=== PATIENT | female | born 1980 | race Caucasian/White ===

== ENCOUNTER 2017-06-13 21:27 | Emergency (ER) | payer OTHER, MEDICAID ==
[~2017-06-13] VITALS: Ht 160 cm; Wt 143.3 kg
[~2017-06-13 21:27] MED LIST: ALBUTEROL2.5 MG/3 M INH; AMBIEN 10 MG TA10 MG PO; ANASPAZ0.125 MG SL; BENTYL 10 MG CA10 M1 PO; BENTYL20 MG PO; BUSPIRONE HCL10 MG PO; DUONEB 2.5-0.5 M3 ML INH; FLAGYL500 MG PO; FLEXERIL PO; GABAPENTIN 100100 MG PO; HYDROCHLOROTHIA25 M2 PO; HYDROCODONE-AP1 EAC6 PO; HYDROCODONE-APA1 TA1 PO; HYDROXYZINE PAM50 MG PO; IBUPROFEN 800800 M1 PO; IBUPROFEN 800800 MG PO; LEXAPRO 10 MG T10 M1 PO; LEXAPRO 10 MG T10 M2 PO; MACROBID 100 M100 M1 PO; MEDROL DOSPAK21 TA1 PO; MEDROLDOSEPACK PO; MIRALAX17 GM PO; NAPROSYN500 MG PO; NEBULIZER MISCELL; NORCO 5-325 TA1 EACH PO; ONDANSETRON HCL4 M2 PO; PEPCID20 MG PO; PREDNISONE 20 M20 MG PO; PREDNISONE50 MG PO; PRINIVIL20 MG; PROAIR HFA8.5 GM PO; PROMETHAZINE/C118 ML PO; PROTONIX40 M1; PROTONIX40 M1 PO; REGLAN 10 MG TA10 MG PO; ROBAXIN 750 MG750 M1 PO; TESSALON PERLE100 MG PO; TRAMADOL 50 MG50 MG PO; TRIAMCINOLONE A15 G1 TP; VENTOLIN HFA 1818 GM INH; VISTARIL 25 MG25 M1 PO; ZOFRAN4 MG PO; ZPAK PO
[2017-06-13] MEDS ORDERED: JANUVIA100 MG PO (21:32)
[2017-06-13] MEDS ORDERED: PRAVASTATIN SOD10 MG PO (21:32)
[2017-06-13 21:58] LABS: ABSOLUTE EOSINOPHILS 0.2 thou/uL (0.0-0.7); ABSOLUTE LYMPHOCYTES 1.4 thou/uL (0.8-5.3); ABSOLUTE MONOCYTES 0.5 thou/uL (0.0-1.2); ABSOLUTE NEUTROPHILS 7.2 thou/uL (1.6-8.1); BASOPHILS 0.4 %; HEMATOCRIT 34.1 % (37.0-47.0); LYMPHOCYTES 15.4 %; MCH 27.5 pg (26.0-34.0); MCHC 32.4 g/dL (28.0-37.0); MCV 85.1 fL (80.0-100.0); MONOCYTES 5.3 %; MPV 7.8 fl. (7.2-11.1); NUCLEATED RBCS 0 /100WBC; PLATELET COUNT* 288 thou/uL (150-400); POLYS 76.9 %; RBC 4.01 mil/uL (4.20-5.00); RDW-CV 16.9 % (10.5-14.5); WBC 9.3 thou/uL (4.0-11.0)
[2017-06-13 22:05] LABS: ANION GAP 11 mmol/L (7-16); BUN 7 mg/dL (7-18); CALCIUM 8.3 mg/dL (8.5-10.1); CHLORIDE 103 mmol/L (98-107); CO2 26 mmol/L (21-32); CREATININE 0.7 mg/dL (0.6-1.3); GLUCOSE 122 mg/dL (70-99); POTASSIUM 4.1 mmol/L (3.5-5.1); SODIUM 140 mmol/L (136-145)
[2017-06-13 22:18] LABS: APTT 26.8 Seconds (25.0-31.3); PROTIME 10.1 Seconds (9.20-11.50)
[2017-06-13 22:30] LABS: ALBUMIN 2.9 g/dL (3.4-5.0); ALKALINE PHOSPHATASE 94 U/L (46-116); CK-MB MASS < 0.5 ng/mL (<0.5-3.6); LIPASE 226 U/L (73-393); MAGNESIUM 1.7 mg/dL (1.8-2.4); NT-PRO BRAIN NAT PEPTIDE 347 pg/mL (<300); SGOT 21 U/L (15-37); SGPT 13 U/L (30-65); TOTAL BILIRUBIN 0.3 mg/dL (<0.1-1.0); TOTAL PROTEIN 7.3 g/dL (6.4-8.2); TROPONIN-I LEVEL <0.06 ng/mL (<0.06)
[2017-06-14] MEDS ORDERED: NORCO 5-325 TA1 EACH PO (00:42)
[2017-06-14] MEDS ORDERED: KEFLEX500 M1 PO (00:42)
[2017-06-14 01:03] VITALS: BP 138/90
--- NOTE | 2017-06-14 11:28 | EKG ---
[place] [address] ELECTROCARDIOGRAM REPORT Name: AILYN MORALES Room: 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
== END 2017-06-14 01:03 | disposition home or self-care (01) ==
LOC: M.ERS 21:27
PROVIDERS: Family Medicine
DX: R07.9 Chest pain, unspecified (principal); L03.116 Cellulitis of left lower limb; I10 Essential (primary) hypertension; K21.9 Gastro-esophageal reflux disease without esophagitis; J44.9 Chronic obstructive pulmonary disease, unspecified; F41.9 Anxiety disorder, unspecified; F32.9 Major depressive disorder, single episode, unspecified; F17.210 Nicotine dependence, cigarettes, uncomplicated; Z90.49 Acquired absence of other specified parts of digestive tract; Z98.890 Other specified postprocedural states; Z88.1 Allergy status to other antibiotic agents; Z88.5 Allergy status to narcotic agent

== ENCOUNTER 2017-06-21 16:48 | Emergency (ER) | payer OTHER, MEDICAID ==
[~2017-06-21] VITALS: Ht 160 cm; Wt 136.1 kg
[~2017-06-21 16:48] MED LIST changes: +JANUVIA100 MG PO; +KEFLEX500 M1 PO; +PRAVASTATIN SOD10 MG PO
[2017-06-21 17:37] LABS: INFLUENZA A ANTIGEN None Detected (None Detect); INFLUENZA B ANTIGEN None Detected (None Detect)
[2017-06-21 17:37] LABS: ABSOLUTE EOSINOPHILS 0.1 thou/uL (0.0-0.7); ABSOLUTE LYMPHOCYTES 0.8 thou/uL (0.8-5.3); ABSOLUTE MONOCYTES 0.5 thou/uL (0.0-1.2); ABSOLUTE NEUTROPHILS 6.5 thou/uL (1.6-8.1); BASOPHILS 0.3 %; EOSINOPHILS 1.1 %; HEMATOCRIT 29.4 % (37.0-47.0); HEMOGLOBIN 9.7 gm/dL (12.0-15.0); LYMPHOCYTES 10.3 %; MCH 27.3 pg (26.0-34.0); MCHC 32.9 g/dL (28.0-37.0); MONOCYTES 6.4 %; MPV 7.3 fl. (7.2-11.1); NUCLEATED RBCS 0 /100WBC; PLATELET COUNT* 307 thou/uL (150-400); POLYS 81.9 %; RBC 3.54 mil/uL (4.20-5.00)
[2017-06-21 17:47] LABS: CALCIUM 8.8 mg/dL (8.5-10.1); CREATININE 0.7 mg/dL (0.6-1.3); POTASSIUM 3.9 mmol/L (3.5-5.1)
[2017-06-21 17:51] LABS: ALBUMIN 2.4 g/dL (3.4-5.0); TOTAL BILIRUBIN 0.2 mg/dL (<0.1-1.0); TOTAL PROTEIN 7.2 g/dL (6.4-8.2)
[2017-06-21] MEDS ORDERED: TESSALON PERLE100 MG PO (18:39)
[2017-06-21] MEDS ORDERED: CEFUROXIME500 MG PO (18:39)
[2017-06-21] MEDS ORDERED: PROAIR HFA8.5 GM INH (19:31)
[2017-06-21 19:52] VITALS: BP 177/102
--- NOTE | 2017-06-22 20:13 | EKG ---
[place] [address] ELECTROCARDIOGRAM REPORT Name: AILYN MORALES Room: [facility]#: [id number] Admission: 06/21/17 Attend Phys: Discharge: 06/21/17 Date of : 76 Report #: [id number] THIS REPORT FOR: //name// [facility] ED Test Date: 2017-06-21 Test Time: 17:31:35 Pat Name: AILYN MORALES Department: Room: Gender: F Hand Ironer: Aldo WOOD : 1980 Requested By: Randee Harmon Order Number: [id number] MD: Misael Chisholm Measurements Intervals [place] Rate: 105 P: 42 W[place]: 155 QRS: 37 QRSD: 93 T: 44 QT: 343 QTc: 454 Interpretive Statements Sinus tachycardia Compared to ECG 06/13/2017 21:35:46 No significant changes Electronically Signed On 06-22-2017 20:12:53 TIBCO DEVELOPER by Misael Chisholm [email or web address] <ELECTRONICALLY SIGNED> By: Misael Chisholm MD, [facility] 06/22/172011 1731 1731 Misael Chisholm MD, FAC /EPI
== END 2017-06-21 19:53 | disposition home or self-care (01) ==
LOC: M.ERS 16:48
PROVIDERS: Nurse Practitioner Family
DX: J44.1 Chronic obstructive pulmonary disease with (acute) exacerbation (principal); I10 Essential (primary) hypertension; K21.9 Gastro-esophageal reflux disease without esophagitis; F41.9 Anxiety disorder, unspecified; F32.9 Major depressive disorder, single episode, unspecified; F17.210 Nicotine dependence, cigarettes, uncomplicated; Z88.8 Allergy status to other drugs, medicaments and biological substances; Z90.49 Acquired absence of other specified parts of digestive tract; Z88.0 Allergy status to penicillin

== ENCOUNTER 2017-06-24 08:00 | Inpatient (IN) | payer OTHER, MEDICAID ==
[~2017-06-24] VITALS: Ht 160 cm; Wt 141.6 kg
[~2017-06-24 08:00] MED LIST changes: +CEFUROXIME500 MG PO; +PROAIR HFA8.5 GM INH
[2017-06-24 08:17] VITALS: BP 197/119
[2017-06-24 11:00] LABS: HEMATOCRIT 33.3 % (37.0-47.0); HEMOGLOBIN 10.9 gm/dL (12.0-15.0); MCH 26.9 pg (26.0-34.0); MCHC 32.8 g/dL (28.0-37.0); MCV 82.1 fL (80.0-100.0); NUCLEATED RBCS 0 /100WBC; PLATELET COUNT* 351 thou/uL (150-400); RBC 4.06 mil/uL (4.20-5.00); RDW-CV 15.6 % (10.5-14.5); WBC 9.8 thou/uL (4.0-11.0)
[2017-06-24 11:13] LABS: CALCIUM 8.8 mg/dL (8.5-10.1); CREATININE 0.6 mg/dL (0.6-1.3); POTASSIUM 3.1 mmol/L (3.5-5.1)
[2017-06-24 11:17] LABS: ALBUMIN 2.6 g/dL (3.4-5.0); TOTAL BILIRUBIN 0.3 mg/dL (<0.1-1.0); TOTAL PROTEIN 7.7 g/dL (6.4-8.2)
[2017-06-24 11:34] LABS: ABSOLUTE EOSINOPHILS 0.1 thou/uL (0.0-0.7); ABSOLUTE LYMPHOCYTES 2.3 thou/uL (0.8-5.3); ABSOLUTE MONOCYTES 0.4 thou/uL (0.0-1.2); ABSOLUTE NEUTROPHILS 7.1 thou/uL (1.6-8.1); PLATELET ESTIMATE ADEQUATE
[2017-06-24 11:35] LABS: ANISOCYTOSIS Occasional; HYPOCHROMASIA Occasional
[2017-06-24 12:07] VITALS: BP 167/103
[2017-06-24 12:29] VITALS: BP 170/101
[2017-06-24 15:46] VITALS: BP 143/81
[2017-06-25 00:05] VITALS: BP 141/85
[2017-06-25 04:15] LABS: HEMATOCRIT 30.8 % (37.0-47.0); HEMOGLOBIN 10.1 gm/dL (12.0-15.0); MCHC 32.7 g/dL (28.0-37.0); MCV 82.7 fL (80.0-100.0); PREALBUMIN 13.4 mg/dL (18.0-35.7); RBC 3.73 mil/uL (4.20-5.00); RDW-CV 16.1 % (10.5-14.5); WBC 7.5 thou/uL (4.0-11.0)
[2017-06-25 04:24] LABS: ALBUMIN 2.4 g/dL (3.4-5.0); CALCIUM 8.3 mg/dL (8.5-10.1); CREATININE 0.7 mg/dL (0.6-1.3); MAGNESIUM 1.8 mg/dL (1.8-2.4); POTASSIUM 3.6 mmol/L (3.5-5.1); TOTAL BILIRUBIN 0.3 mg/dL (<0.1-1.0); TOTAL PROTEIN 7.1 g/dL (6.4-8.2)
[2017-06-25 05:28] VITALS: BP 141/85
[2017-06-25 07:55] VITALS: BP 160/102
[2017-06-25 10:54] VITALS: BP 152/92
--- NOTE | 2017-06-25 10:59 | EKG ---
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
[2017-06-25 12:06] LABS: GLYCOHEMOGLOBIN (HGB A1C) 5.5 % (4.8-5.6)
[2017-06-25 15:12] LABS: HBsAG-EMPLOYEE EXPOSURE Negative (Negative)
[2017-06-25 17:00] VITALS: BP 152/84
[2017-06-25 20:00] VITALS: BP 110/63
[2017-06-26 03:35] VITALS: BP 131/74
[2017-06-26 04:01] LABS: HEMOGLOBIN 9.5 gm/dL (12.0-15.0); MCH 27.3 pg (26.0-34.0); MCHC 32.7 g/dL (28.0-37.0); MCV 83.6 fL (80.0-100.0); RBC 3.47 mil/uL (4.20-5.00); RDW-CV 16.3 % (10.5-14.5); WBC 9.6 thou/uL (4.0-11.0)
[2017-06-26 04:16] LABS: CALCIUM 8.5 mg/dL (8.5-10.1); CREATININE 0.8 mg/dL (0.6-1.3); MAGNESIUM 1.9 mg/dL (1.8-2.4); POTASSIUM 4.2 mmol/L (3.5-5.1)
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
[2017-06-26 08:00] VITALS: BP 126/66
[2017-06-26 16:00] VITALS: BP 153/104
[2017-06-27 00:28] VITALS: BP 149/88
[2017-06-27 08:05] VITALS: BP 152/91
[2017-06-27 09:10] LABS: ABSOLUTE BASOPHILS 0.1 thou/uL (0.0-0.2); ABSOLUTE EOSINOPHILS 0.2 thou/uL (0.0-0.7); ABSOLUTE LYMPHOCYTES 1.4 thou/uL (0.8-5.3); ABSOLUTE MONOCYTES 0.4 thou/uL (0.0-1.2); ABSOLUTE NEUTROPHILS 5.9 thou/uL (1.6-8.1); BASOPHILS 1.3 %; EOSINOPHILS 2.1 %; HEMATOCRIT 28.5 % (37.0-47.0); HEMOGLOBIN 9.4 gm/dL (12.0-15.0); LYMPHOCYTES 17.6 %; MCH 27.2 pg (26.0-34.0); MCHC 33.1 g/dL (28.0-37.0); MCV 82.2 fL (80.0-100.0); MONOCYTES 5.3 %; MPV 7.4 fl. (7.2-11.1); NUCLEATED RBCS 0 /100WBC; PLATELET COUNT* 299 thou/uL (150-400); POLYS 73.7 %; RBC 3.47 mil/uL (4.20-5.00); RDW-CV 16.1 % (10.5-14.5); WBC 8.1 thou/uL (4.0-11.0)
[2017-06-27 09:25] LABS: ALBUMIN 2.3 g/dL (3.4-5.0); CALCIUM 8.8 mg/dL (8.5-10.1); CREATININE 1.1 mg/dL (0.6-1.3); POTASSIUM 4.1 mmol/L (3.5-5.1); TOTAL BILIRUBIN 0.3 mg/dL (<0.1-1.0); TOTAL PROTEIN 6.8 g/dL (6.4-8.2)
[2017-06-27 16:51] VITALS: BP 186/95
[2017-06-27 19:25] VITALS: BP 137/78
[2017-06-28 05:04] LABS: ABSOLUTE EOSINOPHILS 0.2 thou/uL (0.0-0.7); ABSOLUTE LYMPHOCYTES 1.1 thou/uL (0.8-5.3); ABSOLUTE MONOCYTES 0.5 thou/uL (0.0-1.2); ABSOLUTE NEUTROPHILS 6.9 thou/uL (1.6-8.1); BASOPHILS 0.4 %; EOSINOPHILS 1.9 %; HEMATOCRIT 30.1 % (37.0-47.0); HEMOGLOBIN 9.7 gm/dL (12.0-15.0); LYMPHOCYTES 12.6 %; MCH 26.7 pg (26.0-34.0); MCHC 32.2 g/dL (28.0-37.0); MONOCYTES 5.9 %; MPV 7.5 fl. (7.2-11.1); NUCLEATED RBCS 0 /100WBC; PLATELET COUNT* 293 thou/uL (150-400); POLYS 79.2 %; RBC 3.63 mil/uL (4.20-5.00); RDW-CV 16.2 % (10.5-14.5); WBC 8.8 thou/uL (4.0-11.0)
[2017-06-28 05:14] LABS: ALBUMIN 2.5 g/dL (3.4-5.0); CALCIUM 9.1 mg/dL (8.5-10.1); TOTAL BILIRUBIN 0.3 mg/dL (<0.1-1.0); TOTAL PROTEIN 7.2 g/dL (6.4-8.2)
[2017-06-28 09:00] VITALS: BP 177/96
[2017-06-28 16:26] VITALS: BP 142/79
[2017-06-28 23:44] VITALS: BP 142/90
[2017-06-29 05:48] LABS: ABSOLUTE BASOPHILS 0.1 thou/uL (0.0-0.2); ABSOLUTE EOSINOPHILS 0.1 thou/uL (0.0-0.7); ABSOLUTE LYMPHOCYTES 0.9 thou/uL (0.8-5.3); ABSOLUTE MONOCYTES 0.5 thou/uL (0.0-1.2); ABSOLUTE NEUTROPHILS 6.1 thou/uL (1.6-8.1); BASOPHILS 0.7 %; EOSINOPHILS 1.8 %; HEMOGLOBIN 9.8 gm/dL (12.0-15.0); LYMPHOCYTES 12.2 %; MCH 26.9 pg (26.0-34.0); MCHC 32.7 g/dL (28.0-37.0); MCV 82.1 fL (80.0-100.0); MONOCYTES 6.6 %; MPV 7.2 fl. (7.2-11.1); NUCLEATED RBCS 0 /100WBC; PLATELET COUNT* 306 thou/uL (150-400); POLYS 78.7 %; RBC 3.65 mil/uL (4.20-5.00); RDW-CV 16.4 % (10.5-14.5); WBC 7.8 thou/uL (4.0-11.0)
[2017-06-29 06:19] LABS: ALBUMIN 2.5 g/dL (3.4-5.0); CALCIUM 9.3 mg/dL (8.5-10.1); CREATININE 0.9 mg/dL (0.6-1.3); POTASSIUM 3.8 mmol/L (3.5-5.1); TOTAL BILIRUBIN 0.4 mg/dL (<0.1-1.0); TOTAL PROTEIN 7.3 g/dL (6.4-8.2)
[2017-06-29 12:44] VITALS: BP 182/93
[2017-06-29] MEDS ORDERED: NEURONTIN600 MG PO (15:25)
[2017-06-29] MEDS ORDERED: HYDROCODONE-AP1 EAC6 PO (15:25)
[2017-06-29] MEDS ORDERED: TOPROL XL50 MG PO (15:25)
[2017-06-29 16:47] VITALS: BP 182/93
[2017-06-29 19:28] VITALS: BP 182/93
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
== END 2017-06-29 19:05 | disposition home health service (06) | DRG 571 ==
LOC: M.ERS 08:00 → M.TBA-ER 10:38 → M.3W 12:12
PROVIDERS: Internal Medicine; Personal Emergency Response Attendant; ADMIT Family Medicine
PROC: 0JBP0ZZ Excision of Left Lower Leg Subcutaneous Tissue and Fascia, Open Approach (ICD-10-PCS; principal; 2017-06-24)
DX: L02.416 Cutaneous abscess of left lower limb (principal); L03.90 Cellulitis, unspecified; I16.0 Hypertensive urgency; E87.6 Hypokalemia; E11.65 Type 2 diabetes mellitus with hyperglycemia; I10 Essential (primary) hypertension; K21.9 Gastro-esophageal reflux disease without esophagitis; F17.210 Nicotine dependence, cigarettes, uncomplicated; J44.9 Chronic obstructive pulmonary disease, unspecified; F32.9 Major depressive disorder, single episode, unspecified; F41.9 Anxiety disorder, unspecified; Z90.49 Acquired absence of other specified parts of digestive tract; Z88.8 Allergy status to other drugs, medicaments and biological substances; Z79.899 Other long term (current) drug therapy; Z72.89 Other problems related to lifestyle; Z88.1 Allergy status to other antibiotic agents

== ENCOUNTER → 2017-07-24 | Outpatient (CLI) | payer OTHER, MEDICAID ==
[~2017-07-24] MED LIST changes: +MINOCIN100 MG PO; +NEURONTIN600 MG PO; +PERCOCET PO; +TOPROL XL50 MG PO
== END ==
LOC: M.WC 09:00
DX: T81.89XA Other complications of procedures, not elsewhere classified, initial encounter (principal); L02.416 Cutaneous abscess of left lower limb; J44.9 Chronic obstructive pulmonary disease, unspecified; I10 Essential (primary) hypertension; K21.9 Gastro-esophageal reflux disease without esophagitis; F32.9 Major depressive disorder, single episode, unspecified; F17.200 Nicotine dependence, unspecified, uncomplicated; Y83.8 Other surgical procedures as the cause of abnormal reaction of the patient, or of later complication, without mention of misadventure at the time of the procedure

== ENCOUNTER → 2017-07-31 | Outpatient (CLI) | payer OTHER, MEDICAID | LOC: M.WC 01:42 | DX: T81.89XD Other complications of procedures, not elsewhere classified, subsequent encounter (principal); L02.416 Cutaneous abscess of left lower limb; J44.9 Chronic obstructive pulmonary disease, unspecified; I10 Essential (primary) hypertension; K21.9 Gastro-esophageal reflux disease without esophagitis; F32.9 Major depressive disorder, single episode, unspecified; F17.200 Nicotine dependence, unspecified, uncomplicated; Y83.8 Other surgical procedures as the cause of abnormal reaction of the patient, or of later complication, without mention of misadventure at the time of the procedure ==

== ENCOUNTER 2017-08-12 18:36 | Emergency (ER) | payer OTHER, MEDICAID ==
[~2017-08-12] VITALS: Ht 160 cm; Wt 141.1 kg
[~2017-08-12 18:36] MED LIST changes: -MINOCIN100 MG PO; -PERCOCET PO
[2017-08-12 19:10] LABS: ABSOLUTE EOSINOPHILS 0.2 thou/uL (0.0-0.7); ABSOLUTE LYMPHOCYTES 1.5 thou/uL (0.8-5.3); ABSOLUTE MONOCYTES 0.3 thou/uL (0.0-1.2); BASOPHILS 0.7 %; EOSINOPHILS 2.6 %; HEMATOCRIT 34.6 % (37.0-47.0); LYMPHOCYTES 21.1 %; MCH 24.9 pg (26.0-34.0); MCHC 31.8 g/dL (28.0-37.0); MCV 78.3 fL (80.0-100.0); MONOCYTES 4.9 %; MPV 7.8 fl. (7.2-11.1); NUCLEATED RBCS 0 /100WBC; PLATELET COUNT* 262 thou/uL (150-400); POLYS 70.7 %; RBC 4.42 mil/uL (4.20-5.00); RDW-CV 16.2 % (10.5-14.5); WBC 7.1 thou/uL (4.0-11.0)
[2017-08-12 19:18] LABS: CALCIUM 8.7 mg/dL (8.5-10.1); CREATININE 0.7 mg/dL (0.6-1.3); POTASSIUM 3.8 mmol/L (3.5-5.1)
[2017-08-12 19:23] LABS: ALBUMIN 3.2 g/dL (3.4-5.0); TOTAL BILIRUBIN 0.3 mg/dL (<0.1-1.0); TOTAL PROTEIN 7.3 g/dL (6.4-8.2)
[2017-08-12] MEDS ORDERED: NORCO 5-325 TA1 EACH PO (22:31)
[2017-08-12 22:52] VITALS: BP 182/98
== END 2017-08-12 22:54 | disposition home or self-care (01) ==
LOC: M.ERS 18:36
PROVIDERS: Nurse Practitioner Family
DX: L97.829 Non-pressure chronic ulcer of other part of left lower leg with unspecified severity (principal); I10 Essential (primary) hypertension; K21.9 Gastro-esophageal reflux disease without esophagitis; F41.9 Anxiety disorder, unspecified; F32.9 Major depressive disorder, single episode, unspecified; F17.210 Nicotine dependence, cigarettes, uncomplicated; Z90.49 Acquired absence of other specified parts of digestive tract; Z88.1 Allergy status to other antibiotic agents; Z88.8 Allergy status to other drugs, medicaments and biological substances

== ENCOUNTER → 2017-08-14 | Outpatient (CLI) | payer OTHER, MEDICAID ==
[~2017-08-14] MED LIST changes: +MINOCIN100 MG PO; +PERCOCET PO
== END ==
LOC: M.WC 03:07
DX: T81.89XD Other complications of procedures, not elsewhere classified, subsequent encounter (principal); E11.9 Type 2 diabetes mellitus without complications; I10 Essential (primary) hypertension; K21.9 Gastro-esophageal reflux disease without esophagitis; J44.9 Chronic obstructive pulmonary disease, unspecified; F32.9 Major depressive disorder, single episode, unspecified; F17.200 Nicotine dependence, unspecified, uncomplicated; Y83.8 Other surgical procedures as the cause of abnormal reaction of the patient, or of later complication, without mention of misadventure at the time of the procedure

== ENCOUNTER 2017-08-21 01:30 | Inpatient (IN) | payer OTHER, MEDICAID ==
[~2017-08-21] VITALS: Ht 160 cm; Wt 143.8 kg
[~2017-08-21 01:30] MED LIST changes: -MINOCIN100 MG PO; -PERCOCET PO
[2017-08-21 10:40] VITALS: BP 178/103
[2017-08-21] MEDS ORDERED: PRAVASTATIN SOD10 MG PO (11:36)
[2017-08-21 12:12] LABS: ABSOLUTE EOSINOPHILS 0.2 thou/uL (0.0-0.7); ABSOLUTE LYMPHOCYTES 1.4 thou/uL (0.8-5.3); ABSOLUTE MONOCYTES 0.3 thou/uL (0.0-1.2); BASOPHILS 0.5 %; HEMATOCRIT 31.2 % (37.0-47.0); LYMPHOCYTES 23.6 %; MCH 24.6 pg (26.0-34.0); MCV 76.7 fL (80.0-100.0); MONOCYTES 4.7 %; MPV 7.8 fl. (7.2-11.1); NUCLEATED RBCS 0 /100WBC; PLATELET COUNT* 238 thou/uL (150-400); POLYS 68.2 %; RBC 4.07 mil/uL (4.20-5.00); RDW-CV 16.3 % (10.5-14.5); WBC 5.8 thou/uL (4.0-11.0)
[2017-08-21 12:17] LABS: CALCIUM 8.7 mg/dL (8.5-10.1); CREATININE 0.6 mg/dL (0.6-1.3); POTASSIUM 3.7 mmol/L (3.5-5.1)
[2017-08-21 12:22] LABS: ALBUMIN 2.9 g/dL (3.4-5.0); TOTAL BILIRUBIN 0.4 mg/dL (<0.1-1.0); TOTAL PROTEIN 6.6 g/dL (6.4-8.2)
--- NOTE | 2017-08-21 14:15 | NUR ---
WAS ASKED BY SHRUTI KHAN AND EMEKA TO CHECK ON PT'S HH AND IV ANTIBX USE AT HOME SINCE LAST DC. PT WAS DC'D END OF JUN WITH ROQUE GOMEZ AND [facility]. ROQUE/BARRETT STATED PT ONLY DID 2 WEEKS OF IV ANTIBX. [facility] IS STILL SEEING PT AT HOME FOR WOUND CARE AND STATED SHE HAD BEEN NON-COMPLIANT WITH KEEPING HER WOUND VAC ON, WAS FOUND OFF AT VISITS AND THAT SHE HAD NOT FOLLOWED UP WITH WOUND CARE CENTER UNTIL TODAY. MADE THEM AWARE PT WAS READMITTED
--- NOTE | 2017-08-21 15:20 | NUR ---
WOUND NURSE: PATIENT SEEN IN WOUND CENTER TODAY. CURRENTLY HAS DRESSING INTACT ON THE LEFT TECHNICAL SALES ADVISOR LEG BEHINID THE KNEE. PATIENT HAD ARRIVED AT THE WOUND CENTER WITHOUT A DRESSING AND STATED, "IT JUST FALLS OFF." AND WITHOUT EXPLANATION OF WHY WHEN ASKED. PATIENT WAS SEEN BY DR. ALDO MD WHO IS NO PLANNING INTERVENTION AT THIS TIME. RESULTS OF VENOUS DOPPLER WAS NEG FOR DVT. ANTICIPATE WOUND VAC TO BE REAPPLIED TOMORROW. PATIENT INSTRUCTED OF THE POTENTIAL RISKS AND BENEFITS ASSOCIATED WITH COMPLIANCE WITH POT, BUT FUTHER REINFORCEMENT OF TEACHING WILL BE NECESSARY.
[2017-08-21 15:45] VITALS: BP 121/77
--- NOTE | 2017-08-21 16:25 | NUR ---
PATIENT DIRECT ADMIT FROM WOUND CENTER THIS MORNING. ALERT AND ORIENTED X 4. SURGERY AND ID CONSULTED FOR PER DR. HENDRICKSON'S ORDERS. POSSIBLE WOUND VAC PLACEMENT TO LEFT KNEE WOUND. DRESSING IN PLACE, REINFORCED NEEDED. DOPPLER OF JAMIN LE'S NEGATIVE. IVF AND SCHED ABX INFUSING. SCD'S. CARB CONTROLLED DIET, ACCUCHECK. PERCOCET Q6 FOR PAIN. ORIENTED TO CALL LIGHT. CALL LIGHT WITHIN REACH, WILL CONTINUE TO MONITOR.
[2017-08-21 21:34] VITALS: BP 146/81
[2017-08-22 05:20] LABS: ABSOLUTE EOSINOPHILS 0.1 thou/uL (0.0-0.7); ABSOLUTE LYMPHOCYTES 1.4 thou/uL (0.8-5.3); ABSOLUTE MONOCYTES 0.4 thou/uL (0.0-1.2); ABSOLUTE NEUTROPHILS 4.4 thou/uL (1.6-8.1); BASOPHILS 0.4 %; EOSINOPHILS 2.4 %; HEMATOCRIT 30.5 % (37.0-47.0); HEMOGLOBIN 9.8 gm/dL (12.0-15.0); LYMPHOCYTES 21.7 %; MCH 24.6 pg (26.0-34.0); MCHC 32.2 g/dL (28.0-37.0); MCV 76.5 fL (80.0-100.0); MONOCYTES 5.9 %; MPV 8.2 fl. (7.2-11.1); NUCLEATED RBCS 0 /100WBC; PLATELET COUNT* 236 thou/uL (150-400); POLYS 69.6 %; RBC 3.98 mil/uL (4.20-5.00); RDW-CV 16.7 % (10.5-14.5); WBC 6.3 thou/uL (4.0-11.0)
[2017-08-22 05:45] LABS: CALCIUM 8.5 mg/dL (8.5-10.1); CREATININE 0.7 mg/dL (0.6-1.3); POTASSIUM 4.3 mmol/L (3.5-5.1)
--- NOTE | 2017-08-22 06:05 | NUR ---
PATIENT SLEPT MOST OF THE NIGHT. IV FLUIDS AND VANC WERE GIVEN ORDERED. PATIENT WAS GIVEN PAIN MEDICINE TWICE THIS SHIFT WITH GOOD RELIEF. DRESSING REMAINS INTACT TO LEFT LEG. WILL CONTINUE TO MONITOR.
[2017-08-22 08:29] VITALS: BP 142/85
--- NOTE | 2017-08-22 11:05 | NUR ---
SW met with pt to complete initial assessment, introduce self, and SW role. Pt known to this SW from previous admission. Pt lives at home with her mother. Pt hopeful to be able to move into her own apt in [facility] so her 8 yo twin dtrs could live with her. SW discussed possible ways pt could look for apts and clarified pt thought she would not qualify for section 8 housing. Pt did not express any other concerns at this time.
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
--- NOTE | 2017-08-22 11:21 | CON ---
[address] [address] CONSULTATION Name: ANDREW,AILYN Kristi Room: [address] IN .R.#: [id number] Admission: 08/21/17 Attend Phys: Gino Hirsch MD Discharge: Date of : 76 Report #: [id number] THIS REPORT FOR: //name// CC: Gino Mattson [facility] DATE OF SERVICE: 08/21/2017 INFECTIOUS DISEASE CONSULTATION ATTENDING PHYSICIAN: Gino Hirsch M.D. REASON FOR EVALUATION: Left posterior knee skin and soft tissue infection. HISTORY OF PRESENT ILLNESS: Chart reviewed, patient examined. This is a 37-year-old, diabetes mellitus type 2, known who was admitted in June of this year with a necrotizing wound involving the posterior aspect of her left knee. She underwent operative debridement. She was discharged with a wound VAC. She received a course of parenteral antimicrobial therapy as well. Review of cultures showed polymicrobial growth including Staphylococcus aureus as a likely pathogen. She has been followed at the wound care center. Today she was seen, felt to have increasing inflammation at the site. She noted that on the visit at the latter part of last week, had the wound VAC exchanged, and felt that it looked good. She developed pain over the course of the last 48-72 hours, had some anorexia. She did have nausea. She had low-grade temperature elevations with tachycardia and hypertension as well. Cultures were collected at the wound care center. ALLERGIES: LISTED TO AUGMENTIN, CAUSES URTICARIA. CURRENT MEDICATIONS: Pending. Aspirin, gabapentin, metoprolol, nicotine. PAST MEDICAL HISTORY: Hypertension, reflux, irritable bowel syndrome, COPD, anxiety, depression. SOCIAL HISTORY: Available in the chart. FAMILY HISTORY: Available in the chart. REVIEW OF SYSTEMS: As above. PHYSICAL EXAMINATION: GENERAL: She is alert, in [id number] distress secondary to pain. VITAL SIGNS: Temperature 99.4, pulse 121, respirations 18, [place] [address] CONSULTATION Name: AILYN MORALES Room: [address]#: [id number] Admission: 08/21/17 Attend Phys: Gino Hirsch MD Discharge: Date of : 76 Report #: [id number] 170/103. SKIN: Warm, dry, no rashes. HEENT: Unremarkable. NECK: Supple. LUNGS: Generally clear. HEART: Regular. ABDOMEN: Soft. EXTREMITIES: Posterior left knee has moderate inflammation, is quite tender. Wound is packed. I do not appreciate a significant odor at this point. GENITOURINARY: Deferred. RECTAL: Deferred. LABORATORY DATA: Pending. ASSESSMENT: Chronic wound involving the posterior aspect of the left knee. It likely has secondary infection. We will reinstitute parenteral therapy, has known history of Staph aureus. We will await culture results. Continue packing the wound for now. At this point, make sure to optimize her nutritional status since compliance has been an issue in the past. <ELECTRONICALLY SIGNED> By: Montrell Chen MD 08/22/17 1121 1136 1206Jomarely Chen MD /nt
[2017-08-22] MEDS ORDERED: PERCOCET PO (13:08)
[2017-08-22 13:09] VITALS: BP 142/85
[2017-08-22] MEDS ORDERED: MINOCIN100 MG PO (13:29)
--- NOTE | 2017-08-22 13:45 | NUR ---
ORDERS NOTED FOR DC HOME WITH . [facility]. CALLED AND FAXED ORDERS TO [employer]. PT STATES HER DAD WILL TRANSPORT HER HOME. ENCOURAGED TO F/U AT [facility] NEXT WEEK FOR HER APPT. SHE ASKED ABOUT HER WOUND VAC, INSTRUCTED HER TO KEEP IT FOR NOW UNTIL F/U.
== END 2017-08-22 14:20 | disposition home health service (06) | DRG 603 ==
LOC: M.WC 01:30 → M.3W 10:02
PROVIDERS: ADMIT Internal Medicine
DX: L03.116 Cellulitis of left lower limb (principal); F32.9 Major depressive disorder, single episode, unspecified; F41.9 Anxiety disorder, unspecified; E11.9 Type 2 diabetes mellitus without complications; E66.01 Morbid (severe) obesity due to excess calories; I10 Essential (primary) hypertension; Z88.1 Allergy status to other antibiotic agents; Z79.899 Other long term (current) drug therapy; Z68.43 Body mass index [BMI] 50.0-59.9, adult; Z79.51 Long term (current) use of inhaled steroids

== ENCOUNTER → 2017-09-04 | Outpatient (CLI) | payer OTHER, MEDICAID ==
[~2017-09-04] MED LIST changes: +MINOCIN100 MG PO; +PERCOCET PO
== END ==
LOC: M.WC 08-28 02:09
DX: T81.89XD Other complications of procedures, not elsewhere classified, subsequent encounter (principal); E11.622 Type 2 diabetes mellitus with other skin ulcer; L97.821 Non-pressure chronic ulcer of other part of left lower leg limited to breakdown of skin; J44.9 Chronic obstructive pulmonary disease, unspecified; I10 Essential (primary) hypertension; K21.9 Gastro-esophageal reflux disease without esophagitis; F32.9 Major depressive disorder, single episode, unspecified; F17.210 Nicotine dependence, cigarettes, uncomplicated; Y83.8 Other surgical procedures as the cause of abnormal reaction of the patient, or of later complication, without mention of misadventure at the time of the procedure

== ENCOUNTER → 2017-09-18 | Outpatient (CLI) | payer OTHER, MEDICAID | LOC: M.WC 09-11 09:00 | DX: T81.89XD Other complications of procedures, not elsewhere classified, subsequent encounter (principal); E11.622 Type 2 diabetes mellitus with other skin ulcer; L97.821 Non-pressure chronic ulcer of other part of left lower leg limited to breakdown of skin; J44.9 Chronic obstructive pulmonary disease, unspecified; I10 Essential (primary) hypertension; K21.9 Gastro-esophageal reflux disease without esophagitis; F32.9 Major depressive disorder, single episode, unspecified; F17.200 Nicotine dependence, unspecified, uncomplicated; Y83.8 Other surgical procedures as the cause of abnormal reaction of the patient, or of later complication, without mention of misadventure at the time of the procedure ==

== ENCOUNTER → 2017-09-25 | Outpatient (CLI) | payer OTHER, MEDICAID | LOC: M.WC 02:10 | DX: T81.89XD Other complications of procedures, not elsewhere classified, subsequent encounter (principal); E11.622 Type 2 diabetes mellitus with other skin ulcer; L97.821 Non-pressure chronic ulcer of other part of left lower leg limited to breakdown of skin; J44.9 Chronic obstructive pulmonary disease, unspecified; I10 Essential (primary) hypertension; K21.9 Gastro-esophageal reflux disease without esophagitis; F32.9 Major depressive disorder, single episode, unspecified; F17.200 Nicotine dependence, unspecified, uncomplicated; Y83.8 Other surgical procedures as the cause of abnormal reaction of the patient, or of later complication, without mention of misadventure at the time of the procedure ==

== ENCOUNTER → 2017-10-16 | Outpatient (CLI) | payer OTHER, MEDICAID | LOC: M.WC 10-02 00:49 | DX: T81.89XD Other complications of procedures, not elsewhere classified, subsequent encounter (principal); E11.9 Type 2 diabetes mellitus without complications; I10 Essential (primary) hypertension; K21.9 Gastro-esophageal reflux disease without esophagitis; J44.9 Chronic obstructive pulmonary disease, unspecified; F32.9 Major depressive disorder, single episode, unspecified; F17.200 Nicotine dependence, unspecified, uncomplicated; Y83.8 Other surgical procedures as the cause of abnormal reaction of the patient, or of later complication, without mention of misadventure at the time of the procedure ==

== ENCOUNTER → 2017-11-27 | Outpatient (CLI) | payer OTHER, MEDICAID | LOC: M.WC 04:36 | DX: T81.89XD Other complications of procedures, not elsewhere classified, subsequent encounter (principal); I10 Essential (primary) hypertension; K21.9 Gastro-esophageal reflux disease without esophagitis; J44.9 Chronic obstructive pulmonary disease, unspecified; F32.9 Major depressive disorder, single episode, unspecified; F17.200 Nicotine dependence, unspecified, uncomplicated; Y83.8 Other surgical procedures as the cause of abnormal reaction of the patient, or of later complication, without mention of misadventure at the time of the procedure ==

== ENCOUNTER 2018-06-05 10:08 | Emergency (ER) | payer OTHER ==
[~2018-06-05] VITALS: Ht 170.2 cm; Wt 113.4 kg
[2018-06-05 11:12] LABS: INFLUENZA A ANTIGEN None Detected (None Detect); INFLUENZA B ANTIGEN None Detected (None Detect)
[2018-06-05 11:16] LABS: ABSOLUTE BASOPHILS 0.1 thou/uL (0.0-0.2); ABSOLUTE EOSINOPHILS 0.1 thou/uL (0.0-0.7); ABSOLUTE LYMPHOCYTES 1.3 thou/uL (0.8-5.3); ABSOLUTE MONOCYTES 0.4 thou/uL (0.0-1.2); ABSOLUTE NEUTROPHILS 5.1 thou/uL (1.6-8.1); EOSINOPHILS 1.7 %; HEMATOCRIT 39.4 % (37.0-47.0); HEMOGLOBIN 13.5 gm/dL (12.0-15.0); LYMPHOCYTES 18.1 %; MCH 27.8 pg (26.0-34.0); MCHC 34.3 g/dL (28.0-37.0); MCV 81.2 fL (80.0-100.0); MONOCYTES 5.2 %; MPV 8.6 fl. (7.2-11.1); NUCLEATED RBCS 0 /100WBC; PLATELET COUNT* 210 thou/uL (150-400); RBC 4.86 mil/uL (4.20-5.00); RDW-CV 15.9 % (10.5-14.5); WBC 6.9 thou/uL (4.0-11.0)
[2018-06-05 11:23] LABS: CALCIUM 8.6 mg/dL (8.5-10.1); CREATININE 0.8 mg/dL (0.6-1.3); POTASSIUM 3.7 mmol/L (3.5-5.1)
[2018-06-05] MEDS ORDERED: ZOFRAN ODT4 MG PO (11:25)
[2018-06-05 11:27] LABS: ALBUMIN 2.9 g/dL (3.4-5.0); TOTAL BILIRUBIN 0.5 mg/dL (<0.1-1.0)
[2018-06-05] MEDS ORDERED: CLARITIN10 MG PO (11:31)
[2018-06-05] MEDS ORDERED: ROBITUSSIN100 MG/53 PO (11:31)
[2018-06-05 11:43] VITALS: BP 147/79
== END 2018-06-05 11:44 | disposition home or self-care (01) ==
LOC: M.ERS 10:08
PROVIDERS: Physician Assistant
DX: J06.9 Acute upper respiratory infection, unspecified (principal); R73.9 Hyperglycemia, unspecified; R11.2 Nausea with vomiting, unspecified; I10 Essential (primary) hypertension; K21.9 Gastro-esophageal reflux disease without esophagitis; J44.9 Chronic obstructive pulmonary disease, unspecified; F41.9 Anxiety disorder, unspecified; F32.9 Major depressive disorder, single episode, unspecified; K58.9 Irritable bowel syndrome, unspecified; F17.210 Nicotine dependence, cigarettes, uncomplicated; Z88.1 Allergy status to other antibiotic agents; Z88.8 Allergy status to other drugs, medicaments and biological substances; Z90.49 Acquired absence of other specified parts of digestive tract; Z98.890 Other specified postprocedural states

== ENCOUNTER 2018-12-09 21:00 | Emergency (ER) | payer OTHER, MEDICAID ==
[~2018-12-09] VITALS: Ht 160 cm; Wt 140.2 kg
[~2018-12-09 21:00] MED LIST changes: +CLARITIN10 MG PO; +ROBITUSSIN100 MG/53 PO; +ZOFRAN ODT4 MG PO
[2018-12-09] MEDS ORDERED: BUTALB-APAP-CA1 EACH PO (21:36)
[2018-12-09 23:15] VITALS: BP 117/52
== END 2018-12-09 23:16 | disposition home or self-care (01) ==
LOC: M.ERS 21:00
DX: G43.909 Migraine, unspecified, not intractable, without status migrainosus (principal); I10 Essential (primary) hypertension; K21.9 Gastro-esophageal reflux disease without esophagitis; K58.9 Irritable bowel syndrome, unspecified; J44.9 Chronic obstructive pulmonary disease, unspecified; F41.9 Anxiety disorder, unspecified; F32.9 Major depressive disorder, single episode, unspecified; F17.210 Nicotine dependence, cigarettes, uncomplicated; Z90.49 Acquired absence of other specified parts of digestive tract; Z98.51 Tubal ligation status; Z98.890 Other specified postprocedural states; Z88.1 Allergy status to other antibiotic agents

== ENCOUNTER 2018-12-28 17:54 | Emergency (ER) | payer OTHER, MEDICAID ==
[~2018-12-28] VITALS: Ht 160 cm; Wt 139.3 kg
[~2018-12-28 17:54] MED LIST changes: +BUTALB-APAP-CA1 EACH PO
[2018-12-28] MEDS ORDERED: NAPROSYN500 MG PO (18:24)
[2018-12-28] MEDS ORDERED: FLEXERIL PO (18:52)
[2018-12-28 19:01] VITALS: BP 108/66
== END 2018-12-28 19:01 | disposition home or self-care (01) ==
LOC: M.ERS 17:54
DX: S70.02XA Contusion of left hip, initial encounter (principal); I10 Essential (primary) hypertension; K21.9 Gastro-esophageal reflux disease without esophagitis; K58.9 Irritable bowel syndrome, unspecified; J44.9 Chronic obstructive pulmonary disease, unspecified; F41.9 Anxiety disorder, unspecified; F32.9 Major depressive disorder, single episode, unspecified; G43.909 Migraine, unspecified, not intractable, without status migrainosus; Z90.49 Acquired absence of other specified parts of digestive tract; Z98.51 Tubal ligation status; Z98.890 Other specified postprocedural states; W01.0XXA Fall on same level from slipping, tripping and stumbling without subsequent striking against object, initial encounter; Y93.89 Activity, other specified; Y92.89 Other specified places as the place of occurrence of the external cause; Y99.8 Other external cause status

== ENCOUNTER 2019-01-20 17:44 | Inpatient (IN) | payer OTHER, MEDICAID ==
[~2019-01-20] VITALS: Ht 160 cm; Wt 139.3 kg
[~2019-01-20 17:44] MED LIST changes: +PRINIVIL20 MG PO
[2019-01-20 17:48] VITALS: BP 137/79
[2019-01-20 18:36] LABS: ABSOLUTE EOSINOPHILS 0.1 thou/uL (0.0-0.7); ABSOLUTE LYMPHOCYTES 2.4 thou/uL (0.8-5.3); ABSOLUTE MONOCYTES 0.6 thou/uL (0.0-1.2); BASOPHILS 0.3 %; EOSINOPHILS 1.1 %; HEMOGLOBIN 13.4 gm/dL (12.0-15.0); LYMPHOCYTES 21.5 %; MCH 28.7 pg (26.0-34.0); MCHC 34.2 g/dL (28.0-37.0); MCV 83.9 fL (80.0-100.0); MONOCYTES 5.7 %; NUCLEATED RBCS 0 /100WBC; PLATELET COUNT* 206 thou/uL (150-400); POLYS 71.4 %; RBC 4.65 mil/uL (4.20-5.00); RDW-CV 14.6 % (10.5-14.5); WBC 11.1 thou/uL (4.0-11.0)
[2019-01-20 18:46] LABS: CALCIUM 9.2 mg/dL (8.5-10.1); POTASSIUM 3.8 mmol/L (3.5-5.1)
[2019-01-20 18:50] LABS: ALBUMIN 3.1 g/dL (3.4-5.0); TOTAL BILIRUBIN 0.3 mg/dL (<0.1-1.0); TOTAL PROTEIN 7.7 g/dL (6.4-8.2)
[2019-01-20] MEDS ORDERED: SYMBICORT160 MCG/4. INH (19:06)
[2019-01-20] MEDS ORDERED: JANUVIA100 MG PO (19:06)
[2019-01-20 21:19] VITALS: BP 132/83
[2019-01-20 21:30] VITALS: BP 110/51
[2019-01-21 05:51] LABS: ABSOLUTE EOSINOPHILS 0.1 thou/uL (0.0-0.7); ABSOLUTE LYMPHOCYTES 1.7 thou/uL (0.8-5.3); ABSOLUTE MONOCYTES 0.6 thou/uL (0.0-1.2); ABSOLUTE NEUTROPHILS 5.9 thou/uL (1.6-8.1); BASOPHILS 0.4 %; EOSINOPHILS 1.4 %; HEMATOCRIT 37.7 % (37.0-47.0); HEMOGLOBIN 12.8 gm/dL (12.0-15.0); MCH 28.6 pg (26.0-34.0); MCHC 33.9 g/dL (28.0-37.0); MCV 84.3 fL (80.0-100.0); MONOCYTES 6.8 %; MPV 8.9 fl. (7.2-11.1); NUCLEATED RBCS 0 /100WBC; PLATELET COUNT* 185 thou/uL (150-400); POLYS 71.4 %; RBC 4.47 mil/uL (4.20-5.00); RDW-CV 14.5 % (10.5-14.5); WBC 8.3 thou/uL (4.0-11.0)
--- NOTE | 2019-01-21 06:11 | NUR ---
PATIENT ADMITTED TO ROOM 109 FROM THE ER AT APPROXIMATELY 2130. VSS ON RA. NO C/O PAIN. PATIENT HERE ON OBSERVATION STATUS. PATIENT ORIENTED TO ROOM AND POLICIES AND ASSESSMENT CHARTED. PATIENT IS UP AD-ALICE. PATIENT HAS SLEPT MOST OF THE NIGHT. IV IN LEFT FOREARM-SL. PATIENT INSTRUCTED TO USE CALL LIGHT WHEN NEEDING ASSISTANCE. HOURLY ROUNDS MADE. WILL CONTINUE WITH PLAN OF CARE AND NURSING TO MONITOR.
[2019-01-21 09:07] LABS: CALCIUM 8.8 mg/dL (8.5-10.1); CREATININE 0.7 mg/dL (0.6-1.3); MAGNESIUM 1.4 mg/dL (1.8-2.4); POTASSIUM 3.8 mmol/L (3.5-5.1)
--- NOTE | 2019-01-21 15:46 | NUR ---
ASSESSMENT COMPLETE. PT ALERT AND ORIENTED X4. PT GIVEN PRN PAIN MEDICATION ONCE THIS MORNING FOR LEFT LEG PAIN. PT IS UP AD ALICE WITH STEADY GAIT. IV ROCEPHIN GIVEN THIS MORNING. MAG REPLACED PER PROTOCOL. PT ACCU CHECK ACHS. PT HAS LEG ELEVATED AND TUBIGRIP IN PLACE. PT IS ON ROOM AIR, VSS. SEE ASSESSMENT AND VITALS FOR OTHER DETAILS. CALL LIGHT WITHIN REACH, WILL CONTINUE PLAN OF CARE
[2019-01-21 16:01] VITALS: BP 120/65
[2019-01-21 21:20] VITALS: BP 103/55
[2019-01-22 04:20] LABS: ABSOLUTE BASOPHILS 0.1 thou/uL (0.0-0.2); ABSOLUTE EOSINOPHILS 0.1 thou/uL (0.0-0.7); ABSOLUTE LYMPHOCYTES 1.9 thou/uL (0.8-5.3); ABSOLUTE MONOCYTES 0.5 thou/uL (0.0-1.2); ABSOLUTE NEUTROPHILS 7.3 thou/uL (1.6-8.1); BASOPHILS 0.5 %; EOSINOPHILS 0.7 %; HEMOGLOBIN 13.1 gm/dL (12.0-15.0); LYMPHOCYTES 19.5 %; MCH 28.2 pg (26.0-34.0); MCHC 33.7 g/dL (28.0-37.0); MCV 83.7 fL (80.0-100.0); MONOCYTES 4.7 %; MPV 8.5 fl. (7.2-11.1); NUCLEATED RBCS 0 /100WBC; PLATELET COUNT* 191 thou/uL (150-400); POLYS 74.6 %; RBC 4.66 mil/uL (4.20-5.00); RDW-CV 14.2 % (10.5-14.5); WBC 9.8 thou/uL (4.0-11.0)
[2019-01-22 04:34] LABS: CALCIUM 8.8 mg/dL (8.5-10.1); CREATININE 0.6 mg/dL (0.6-1.3)
--- NOTE | 2019-01-22 06:11 | NUR ---
PATIENT HAS SLEPT WELL THROUGHOUT THE NIGHT. VSS ON RA. PAIN WELL CONTROLLED. MEDICATIONS GIVEN ORDERED AND CHARTED. LEFT LEG ELEVATED AND TUBIGRIP IN PLACE. IV IN LEFT AC-SL. PATIENT INSTRUCTED TO USE CALL LIGHT WHEN NEEDING ASSISTANCE. HOURLY ROUNDS MADE. WILL CONTINUE WITH PLAN OF CARE AND NURSING TO MONITOR.
[2019-01-22 10:29] VITALS: BP 133/83
[2019-01-22 11:41] VITALS: BP 133/83
[2019-01-22] MEDS ORDERED: MINOCIN50 MG PO (11:41)
--- NOTE | 2019-01-22 14:40 | NUR ---
ASSUMED CARE OF PATIENT AT APPROX 0730. ALERT AND ORIENTED X4. ASSESSMENT COMPLETED AND CHARTED. VSS ON ROOM AIR. PAIN MANAGED WITH ORAL MEDICATION. PATIENT DISCHARGED AT 1210 WITH ALL PERSONAL BELONGINGS, PRESCRIPTIONS, AND DISCHARGE INFORMATION.
[2019-01-22 23:08] LABS: GLYCOHEMOGLOBIN (HGB A1C) 7.8 % (4.8-5.6)
== END 2019-01-22 12:10 | disposition home or self-care (01) | DRG 603 ==
LOC: M.ERS 17:44 → M.ORTHSURG 18:36 → M.TBA-ER 18:36 → M.ORTHSURG 21:43
PROVIDERS: Internal Medicine; Physician Assistant; ADMIT Family Medicine
DX: L03.116 Cellulitis of left lower limb (principal); K58.9 Irritable bowel syndrome, unspecified; I10 Essential (primary) hypertension; E11.9 Type 2 diabetes mellitus without complications; F17.210 Nicotine dependence, cigarettes, uncomplicated; J44.9 Chronic obstructive pulmonary disease, unspecified; Z88.1 Allergy status to other antibiotic agents

== ENCOUNTER 2019-04-06 00:49 | Emergency (ER) | payer OTHER, MEDICAID ==
[~2019-04-06] VITALS: Ht 160 cm; Wt 142.4 kg
[~2019-04-06 00:49] MED LIST changes: +MINOCIN50 MG PO; +SYMBICORT160 MCG/4. INH
[2019-04-06] MEDS ORDERED: LAMOTRIGINE25 MG PO (01:09)
[2019-04-06] MEDS ORDERED: BUSPIRONE HCL15 MG PO (01:10)
[2019-04-06] MEDS ORDERED: HYDROCHLOROTHIA25 M2 PO (01:10)
[2019-04-06] MEDS ORDERED: HYDROXYZINE PAM50 MG PO (01:10)
[2019-04-06] MEDS ORDERED: LEXAPRO20 MG PO (01:11)
[2019-04-06] MEDS ORDERED: VENTOLIN HFA 1818 GM INH (01:43)
[2019-04-06] MEDS ORDERED: PREDNISONE 20 M20 M1 PO (01:43)
[2019-04-06] MEDS ORDERED: ZPAK PO (01:43)
[2019-04-06 01:50] VITALS: BP 155/95
== END 2019-04-06 01:52 | disposition home or self-care (01) ==
LOC: M.ERS 00:49
DX: J44.9 Chronic obstructive pulmonary disease, unspecified (principal); K21.9 Gastro-esophageal reflux disease without esophagitis; K58.9 Irritable bowel syndrome, unspecified; F41.9 Anxiety disorder, unspecified; F32.9 Major depressive disorder, single episode, unspecified; I10 Essential (primary) hypertension; G43.909 Migraine, unspecified, not intractable, without status migrainosus; F17.210 Nicotine dependence, cigarettes, uncomplicated; Z88.1 Allergy status to other antibiotic agents; Z88.8 Allergy status to other drugs, medicaments and biological substances; Z90.49 Acquired absence of other specified parts of digestive tract; Z98.51 Tubal ligation status

== ENCOUNTER 2019-06-16 13:45 | Emergency (ER) | payer OTHER, MEDICAID ==
[~2019-06-16] VITALS: Ht 160 cm; Wt 141.1 kg
[~2019-06-16 13:45] MED LIST changes: +BUSPIRONE HCL15 MG PO; +LAMOTRIGINE25 MG PO; +LEXAPRO20 MG PO; +PREDNISONE 20 M20 M1 PO
[2019-06-16 14:39] LABS: HEMATOCRIT 40.2 % (37.0-47.0); HEMOGLOBIN 13.6 gm/dL (12.0-15.0); MCH 28.5 pg (26.0-34.0); MCHC 33.9 g/dL (28.0-37.0); MCV 84.2 fL (80.0-100.0); MPV 8.8 fl. (7.2-11.1); NUCLEATED RBCS 0 /100WBC; PLATELET COUNT* 213 thou/uL (150-400); RBC 4.77 mil/uL (4.20-5.00); RDW-CV 13.8 % (10.5-14.5); WBC 11.1 thou/uL (4.0-11.0)
[2019-06-16 15:00] LABS: CALCIUM 8.2 mg/dL (8.5-10.1); CREATININE 1.1 mg/dL (0.6-1.3); POTASSIUM 4.1 mmol/L (3.5-5.1)
[2019-06-16 15:05] LABS: ABSOLUTE MONOCYTES 0.2 thou/uL (0.0-1.2); ABSOLUTE NEUTROPHILS 8.9 thou/uL (1.6-8.1); ALBUMIN 3.1 g/dL (3.4-5.0); PLATELET ESTIMATE ADEQUATE; TOTAL BILIRUBIN 0.7 mg/dL (<0.1-1.0); TOTAL PROTEIN 6.4 g/dL (6.4-8.2)
[2019-06-16] MEDS ORDERED: ONDANSETRON HCL4 M2 PO (17:07)
[2019-06-16 17:17] LABS: URINE BILIRUBIN NEGATIVE (Negative); URINE BLOOD TRACE (Negative); URINE CLARITY CLEAR; URINE COLOR YELLOW; URINE GLUCOSE-RANDOM 3+ (Negative); URINE KETONES NEGATIVE (Negative); URINE LEUKOCYTES NEGATIVE (Negative); URINE NITRITE NEGATIVE (Negative); URINE PROTEIN NEGATIVE (Negative); URINE SPECIFIC GRAVITY >= 1.030 (1.005-1.030); URINE UROBILINOGEN 0.2 E.U./dl (0.2-1.0)
[2019-06-16 20:31] VITALS: BP 95/52
--- NOTE | 2019-06-18 13:57 | EKG ---
[place] [address] ELECTROCARDIOGRAM REPORT Name: AILYN MORALES Room: [facility]#: [id number] Admission: 06/16/19 Attend Phys: Discharge: 06/16/19 Date of : 76 Date of Service: 06/16/19 1439 Report #: [id number] THIS REPORT FOR: cc: FREDRICK LAGUNA,FREDRICK Harvey,Remy Hendrix MD [facility] ~ THIS REPORT FOR: //name// [facility] ED Test Date: 2019-06-16 Test Time: 14:39:23 Pat Name: AILYN MORALES Department: Room: Gender: F Bank Clerk: [facility] : 1980 Requested By: Shelby Edmond Order Number: [id number] MD: Remy Harvey Measurements Intervals [place] Rate: 75 P: 12 NV: 182 QRS: 28 QRSD: 95 T: 27 QT: 417 QTc: 466 Interpretive Statements Sinus rhythm Low voltage, precordial leads Baseline wander in lead(s) V5 Compared to ECG 06/25/2017 07:31:50 Low QRS voltage now present Electronically Signed On 06-17-2019 12:41:03 MANUFACTURING PROJECT ENGINEER by Remy Harvey [email or web address] <ELECTRONICALLY SIGNED> By: Remy Harvey MD, [facility] 06/17/19 1241 1439 1439 Remy Harvey MD, [facility] /EPI
== END 2019-06-16 20:32 | disposition home or self-care (01) ==
LOC: M.ERS 13:45
PROVIDERS: Nurse Practitioner Family
DX: E11.65 Type 2 diabetes mellitus with hyperglycemia (principal); I10 Essential (primary) hypertension; K21.9 Gastro-esophageal reflux disease without esophagitis; J44.9 Chronic obstructive pulmonary disease, unspecified; G43.909 Migraine, unspecified, not intractable, without status migrainosus; K58.9 Irritable bowel syndrome, unspecified; F17.210 Nicotine dependence, cigarettes, uncomplicated; Z88.1 Allergy status to other antibiotic agents; Z88.8 Allergy status to other drugs, medicaments and biological substances; Z90.49 Acquired absence of other specified parts of digestive tract; Z98.51 Tubal ligation status; Z98.890 Other specified postprocedural states

== ENCOUNTER 2019-09-01 00:06 | Emergency (ER) | payer OTHER, MEDICAID ==
[~2019-09-01] VITALS: Ht 160 cm; Wt 142.5 kg
[2019-09-01] MEDS ORDERED: FAMOTIDINE 20 M20 MG PO (00:16)
[2019-09-01] MEDS ORDERED: PROTONIX 20 MG20 M1 PO (00:16)
[2019-09-01] MEDS ORDERED: BENTYL 20 MG TA20 M1 PO (00:17)
[2019-09-01] MEDS ORDERED: MINIPRESS1 MG PO (00:18)
[2019-09-01 00:30] LABS: URINE BILIRUBIN NEGATIVE (Negative); URINE BLOOD NEGATIVE (Negative); URINE CLARITY CLEAR; URINE COLOR YELLOW; URINE GLUCOSE-RANDOM 2+ (Negative); URINE KETONES TRACE (Negative); URINE LEUKOCYTES-REFLEX NEGATIVE (Negative); URINE NITRITE-REFLEX NEGATIVE (Negative); URINE PROTEIN NEGATIVE (Negative); URINE SPECIFIC GRAVITY 1.025 (1.005-1.030); URINE UROBILINOGEN 0.2 E.U./dl (0.2-1.0)
[2019-09-01 00:31] LABS: HEMOGLOBIN 13.6 gm/dL (12.0-15.0); MCH 28.5 pg (26.0-34.0); MCHC 33.3 g/dL (28.0-37.0); MCV 85.5 fL (80.0-100.0); MPV 9.2 fl. (7.2-11.1); NUCLEATED RBCS 0 /100WBC; PLATELET COUNT* 303 thou/uL (150-400); RBC 4.79 mil/uL (4.20-5.00); RDW-CV 15.2 % (10.5-14.5); WBC 16.8 thou/uL (4.0-11.0)
[2019-09-01 00:35] LABS: CALCIUM 8.3 mg/dL (8.5-10.1); CREATININE 1.8 mg/dL (0.6-1.3); POTASSIUM 4.4 mmol/L (3.5-5.1)
[2019-09-01 00:39] LABS: ALBUMIN 3.3 g/dL (3.4-5.0); MAGNESIUM 2.1 mg/dL (1.8-2.4); TOTAL BILIRUBIN 0.3 mg/dL (<0.1-1.0); TOTAL PROTEIN 7.8 g/dL (6.4-8.2)
[2019-09-01 01:54] LABS: ABSOLUTE EOSINOPHILS 0.2 thou/uL (0.0-0.7); ABSOLUTE LYMPHOCYTES 3.4 thou/uL (0.8-5.3); ABSOLUTE MONOCYTES 0.5 thou/uL (0.0-1.2); ABSOLUTE NEUTROPHILS 12.8 thou/uL (1.6-8.1)
[2019-09-01 01:55] LABS: ANISOCYTOSIS 1+; PLATELET ESTIMATE ADEQUATE
[2019-09-01 01:56] LABS: CLUMPED PLTS OCCASIONAL
[2019-09-01] MEDS ORDERED: ZOFRAN ODT4 MG PO (02:09)
[2019-09-01 02:24] VITALS: BP 106/56
== END 2019-09-01 02:26 | disposition home or self-care (01) ==
LOC: M.ERS 00:06
PROVIDERS: Emergency Medicine
DX: R10.84 Generalized abdominal pain (principal); R11.2 Nausea with vomiting, unspecified; R19.7 Diarrhea, unspecified; I10 Essential (primary) hypertension; K21.9 Gastro-esophageal reflux disease without esophagitis; J44.9 Chronic obstructive pulmonary disease, unspecified; G43.909 Migraine, unspecified, not intractable, without status migrainosus; E11.9 Type 2 diabetes mellitus without complications; F17.210 Nicotine dependence, cigarettes, uncomplicated; K58.9 Irritable bowel syndrome, unspecified; Z90.49 Acquired absence of other specified parts of digestive tract; Z98.51 Tubal ligation status; Z98.890 Other specified postprocedural states; Z88.1 Allergy status to other antibiotic agents; Z88.8 Allergy status to other drugs, medicaments and biological substances

== ENCOUNTER 2019-09-09 17:21 | Emergency (ER) | payer OTHER, MEDICAID ==
[~2019-09-09] VITALS: Ht 160 cm; Wt 142.0 kg
[~2019-09-09 17:21] MED LIST changes: +BENTYL 20 MG TA20 M1 PO; +FAMOTIDINE 20 M20 MG PO; +MINIPRESS1 MG PO; +PROTONIX 20 MG20 M1 PO
[2019-09-09] MEDS ORDERED: GLUCOPHAGE1000 MG PO (17:45)
[2019-09-09] MEDS ORDERED: JARDIANCE25 MG PO (17:46)
[2019-09-09 18:00] VITALS: BP 164/86
== END 2019-09-09 18:02 | disposition home or self-care (01) ==
LOC: M.ERS 17:21
DX: F41.0 Panic disorder [episodic paroxysmal anxiety] (principal); I10 Essential (primary) hypertension; E11.9 Type 2 diabetes mellitus without complications; K21.9 Gastro-esophageal reflux disease without esophagitis; K58.9 Irritable bowel syndrome, unspecified; J44.9 Chronic obstructive pulmonary disease, unspecified; G43.909 Migraine, unspecified, not intractable, without status migrainosus; F41.9 Anxiety disorder, unspecified; F32.9 Major depressive disorder, single episode, unspecified; F17.210 Nicotine dependence, cigarettes, uncomplicated; Z90.49 Acquired absence of other specified parts of digestive tract; Z98.51 Tubal ligation status; Z98.890 Other specified postprocedural states; Z88.1 Allergy status to other antibiotic agents

== ENCOUNTER 2019-10-11 12:58 | Emergency (ER) | payer OTHER, MEDICAID ==
[~2019-10-11] VITALS: Ht 160 cm; Wt 144.2 kg
[~2019-10-11 12:58] MED LIST changes: +GLUCOPHAGE1000 MG PO; +JARDIANCE25 MG PO
[2019-10-11] MEDS ORDERED: LIPITOR10 MG PO (13:32)
[2019-10-11] MEDS ORDERED: LAMOTRIGINE250 MG PO (13:33)
[2019-10-11 14:10] LABS: URINE BILIRUBIN NEGATIVE (Negative); URINE BLOOD NEGATIVE (Negative); URINE CLARITY CLEAR; URINE COLOR YELLOW; URINE GLUCOSE-RANDOM 3+ (Negative); URINE KETONES NEGATIVE (Negative); URINE LEUKOCYTES-REFLEX NEGATIVE (Negative); URINE NITRITE-REFLEX NEGATIVE (Negative); URINE PROTEIN NEGATIVE (Negative); URINE UROBILINOGEN 0.2 E.U./dl (0.2-1.0)
[2019-10-11] MEDS ORDERED: MEDROLDOSEPACK PO (14:44)
[2019-10-11] MEDS ORDERED: NORCO 5-325 TA1 EAC1 PO (14:44)
[2019-10-11 15:01] VITALS: BP 129/84
== END 2019-10-11 15:02 | disposition home or self-care (01) ==
LOC: M.ERS 12:58
PROVIDERS: Nurse Practitioner Family
DX: M54.5 Low back pain (principal); G89.29 Other chronic pain; I10 Essential (primary) hypertension; E11.9 Type 2 diabetes mellitus without complications; K21.9 Gastro-esophageal reflux disease without esophagitis; G43.909 Migraine, unspecified, not intractable, without status migrainosus; J44.9 Chronic obstructive pulmonary disease, unspecified; F41.9 Anxiety disorder, unspecified; F32.9 Major depressive disorder, single episode, unspecified; F17.210 Nicotine dependence, cigarettes, uncomplicated; Z88.1 Allergy status to other antibiotic agents

== ENCOUNTER 2020-02-24 21:20 | Emergency (ER) | payer OTHER, MEDICAID ==
[~2020-02-24] VITALS: Ht 160 cm; Wt 149.7 kg
[~2020-02-24 21:20] MED LIST changes: +LAMOTRIGINE250 MG PO; +LIPITOR10 MG PO; +NORCO 5-325 TA1 EAC1 PO
[2020-02-24] MEDS ORDERED: TOPROL XL100 MG PO (21:35)
[2020-02-24] MEDS ORDERED: PROZAC40 MG PO (21:36)
[2020-02-24] MEDS ORDERED: NEURONTIN 400400 M1 PO (21:37)
[2020-02-24] MEDS ORDERED: ABILIFY10 MG PO (21:37)
[2020-02-24] MEDS ORDERED: HYDROCHLOROTHIA25 M2 PO (21:37)
[2020-02-24] MEDS ORDERED: TOPROL XL25 MG PO (21:37)
[2020-02-24] MEDS ORDERED: VISTARIL50 MG PO (21:38)
[2020-02-24] MEDS ORDERED: PANTOPRAZOLE SO40 M3 PO (21:39)
[2020-02-24] MEDS ORDERED: NORCO 5-325 TA1 EAC2 PO (21:47)
[2020-02-24] MEDS ORDERED: KEFLEX500 M1 PO (21:47)
[2020-02-24] MEDS ORDERED: BACTRIM DS TAB1 EACH PO (21:47)
[2020-02-24 21:58] VITALS: BP 132/65
== END 2020-02-24 21:58 | disposition home or self-care (01) ==
LOC: M.ERS 21:20
DX: L03.116 Cellulitis of left lower limb (principal); I10 Essential (primary) hypertension; K21.9 Gastro-esophageal reflux disease without esophagitis; K58.9 Irritable bowel syndrome, unspecified; J44.9 Chronic obstructive pulmonary disease, unspecified; G43.909 Migraine, unspecified, not intractable, without status migrainosus; E11.9 Type 2 diabetes mellitus without complications; Z88.1 Allergy status to other antibiotic agents; Z90.49 Acquired absence of other specified parts of digestive tract; Z98.51 Tubal ligation status; Z98.890 Other specified postprocedural states

== ENCOUNTER 2020-03-02 14:57 | Emergency (ER) | payer OTHER, MEDICAID ==
[~2020-03-02] VITALS: Ht 160 cm; Wt 149.7 kg
[~2020-03-02 14:57] MED LIST changes: +ABILIFY10 MG PO; +BACTRIM DS TAB1 EACH PO; +NEURONTIN 400400 M1 PO; +NORCO 5-325 TA1 EAC2 PO; +PANTOPRAZOLE SO40 M3 PO; +PROZAC40 MG PO; +TOPROL XL100 MG PO; +TOPROL XL25 MG PO; +VISTARIL50 MG PO
[2020-03-02 15:41] LABS: INFLUENZA A ANTIGEN Negative (Negative); INFLUENZA B ANTIGEN Negative (Negative)
[2020-03-02] MEDS ORDERED: TESSALON PERLE100 MG PO (16:36)
[2020-03-02] MEDS ORDERED: ZPAK PO (16:36)
[2020-03-02] MEDS ORDERED: MEDROLDOSEPACK PO (16:36)
[2020-03-02] MEDS ORDERED: VENTOLIN HFA 1818 GM INH (16:36)
[2020-03-02 16:48] VITALS: BP 128/76
--- NOTE | 2020-03-03 13:44 | EKG ---
[place] [address] ELECTROCARDIOGRAM REPORT Name: AILYN MORALES Room: [facility]#: [id number] Admission: 03/02/20 Attend Phys: Discharge: 03/02/20 Date of : 76 Date of Service: 03/02/20 1539 Report #: [id number] THIS REPORT FOR: //name// [facility] ED Test Date: 2020-03-02 Test Time: 15:39:55 Pat Name: AILYN MORALES Department: Room: Gender: Bladder Changer: J : 1980 Requested By: Shelby Edmond Order Number: [id number] MD: Remy Harvey Measurements Intervals [place] Rate: 84 P: 11 WI: 162 QRS: 44 QRSD: 94 T: 34 QT: 375 QTc: 444 Interpretive Statements Sinus rhythm Low voltage, precordial leads Compared to ECG 06/16/2019 14:39:23 No significant changes Electronically Signed On 03-03-2020 13:44:07 CDT by Remy Harvey [email or web address] <ELECTRONICALLY SIGNED> By: Remy Harvey MD, FACC 03/03/20 1344 1539 1539 Remy Harvey MD, [facility] /EPI
== END 2020-03-02 16:48 | disposition home or self-care (01) ==
LOC: M.ERS 14:57
PROVIDERS: Nurse Practitioner Family
DX: J98.8 Other specified respiratory disorders (principal); Z20.828 Contact with and (suspected) exposure to other viral communicable diseases; I10 Essential (primary) hypertension; K21.9 Gastro-esophageal reflux disease without esophagitis; J44.9 Chronic obstructive pulmonary disease, unspecified; K58.9 Irritable bowel syndrome, unspecified; G43.909 Migraine, unspecified, not intractable, without status migrainosus; E11.9 Type 2 diabetes mellitus without complications; F17.210 Nicotine dependence, cigarettes, uncomplicated; E66.01 Morbid (severe) obesity due to excess calories; Z68.43 Body mass index [BMI] 50.0-59.9, adult; Z90.49 Acquired absence of other specified parts of digestive tract; Z98.51 Tubal ligation status; Z88.1 Allergy status to other antibiotic agents; Z98.890 Other specified postprocedural states

== ENCOUNTER 2020-05-17 00:05 | Emergency (ER) | payer OTHER, MEDICAID ==
[~2020-05-17] VITALS: Ht 160 cm; Wt 147.0 kg
[2020-05-17 00:31] LABS: URINE BILIRUBIN NEGATIVE (Negative); URINE BLOOD NEGATIVE (Negative); URINE CLARITY CLEAR; URINE COLOR YELLOW; URINE GLUCOSE-RANDOM 3+ (Negative); URINE KETONES NEGATIVE (Negative); URINE LEUKOCYTES-REFLEX NEGATIVE (Negative); URINE NITRITE-REFLEX NEGATIVE (Negative); URINE PROTEIN NEGATIVE (Negative); URINE SPECIFIC GRAVITY 1.025 (1.005-1.030); URINE UROBILINOGEN 0.2 E.U./dl (0.2-1.0)
[2020-05-17 00:52] LABS: ABSOLUTE BASOPHILS 0.1 thou/uL (0.0-0.2); ABSOLUTE EOSINOPHILS 0.2 thou/uL (0.0-0.7); ABSOLUTE LYMPHOCYTES 1.9 thou/uL (0.8-5.3); ABSOLUTE MONOCYTES 0.6 thou/uL (0.0-1.2); ABSOLUTE NEUTROPHILS 8.1 thou/uL (1.6-8.1); BASOPHILS 0.7 %; EOSINOPHILS 1.5 %; HEMATOCRIT 35.1 % (37.0-47.0); HEMOGLOBIN 11.4 gm/dL (12.0-15.0); LYMPHOCYTES 17.7 %; MCH 26.7 pg (26.0-34.0); MCHC 32.5 g/dL (28.0-37.0); MONOCYTES 5.7 %; MPV 7.4 fl. (7.2-11.1); NUCLEATED RBCS 0 /100WBC; PLATELET COUNT* 259 thou/uL (150-400); POLYS 74.4 %; RBC 4.28 mil/uL (4.20-5.00); WBC 10.8 thou/uL (4.0-11.0)
[2020-05-17 00:59] LABS: CALCIUM 8.5 mg/dL (8.5-10.1); POTASSIUM 3.3 mmol/L (3.5-5.1)
[2020-05-17 01:03] LABS: ALBUMIN 2.9 g/dL (3.4-5.0); MAGNESIUM 2.1 mg/dL (1.8-2.4); TOTAL BILIRUBIN 0.3 mg/dL (<0.1-1.0); TOTAL PROTEIN 6.7 g/dL (6.4-8.2)
[2020-05-17 02:27] VITALS: BP 116/59
--- NOTE | 2020-05-17 10:17 | EKG ---
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: : 1980 Requested By: Domenica Field Order Number: [id number] MD: Remy Harvey Measurements Intervals [place] Rate: 86 P: 38 GA: 168 QRS: 34 QRSD: 93 T: 30 QT: 396 QTc: 474 Interpretive Statements Sinus rhythm Low voltage, precordial leads Compared to ECG 03/02/2020 15:39:55 No significant changes Electronically Signed On 05-17-2020 10:17:08 BUTTON INSPECTOR by Remy Harvey [email or web address] <ELECTRONICALLY SIGNED> By: Remy Harvey MD, [facility] 05/17/20 1017 Remy Harvey MD, [facility] /EPI
== END 2020-05-17 02:27 | disposition home or self-care (01) ==
LOC: M.ERS 00:05
PROVIDERS: Personal Emergency Response Attendant
DX: M79.10 Myalgia, unspecified site (principal); E87.6 Hypokalemia; I10 Essential (primary) hypertension; K21.9 Gastro-esophageal reflux disease without esophagitis; J44.9 Chronic obstructive pulmonary disease, unspecified; E11.9 Type 2 diabetes mellitus without complications; G43.909 Migraine, unspecified, not intractable, without status migrainosus; F17.210 Nicotine dependence, cigarettes, uncomplicated; Z90.49 Acquired absence of other specified parts of digestive tract; Z79.899 Other long term (current) drug therapy; Z88.1 Allergy status to other antibiotic agents; Z88.8 Allergy status to other drugs, medicaments and biological substances; Z20.828 Contact with and (suspected) exposure to other viral communicable diseases

== ENCOUNTER 2020-05-20 18:00 | Emergency (ER) | payer OTHER, MEDICAID ==
[~2020-05-20] VITALS: Ht 160 cm; Wt 151.5 kg
[2020-05-20 18:07] VITALS: BP 140/79
[2020-05-20] MEDS ORDERED: KEFLEX500 M1 PO (18:15)
[2020-05-20] MEDS ORDERED: DORYX MPC120 MG PO (18:19)
[2020-05-20] MEDS ORDERED: DOXYCYCLINE 10100 M2 PO (18:20)
== END 2020-05-20 18:38 | disposition home or self-care (01) ==
LOC: M.ERS 18:00
DX: S81.832A Puncture wound without foreign body, left lower leg, initial encounter (principal); I10 Essential (primary) hypertension; J44.9 Chronic obstructive pulmonary disease, unspecified; K21.9 Gastro-esophageal reflux disease without esophagitis; E11.9 Type 2 diabetes mellitus without complications; G43.909 Migraine, unspecified, not intractable, without status migrainosus; F17.210 Nicotine dependence, cigarettes, uncomplicated; Z90.49 Acquired absence of other specified parts of digestive tract; Z79.899 Other long term (current) drug therapy; Z88.1 Allergy status to other antibiotic agents; Z88.8 Allergy status to other drugs, medicaments and biological substances; X58.XXXA Exposure to other specified factors, initial encounter; Y93.89 Activity, other specified; Y92.89 Other specified places as the place of occurrence of the external cause; Y99.8 Other external cause status

== ENCOUNTER 2020-05-25 18:14 | Emergency (ER) | payer OTHER, MEDICAID ==
[~2020-05-25] VITALS: Ht 160 cm; Wt 147.4 kg
[~2020-05-25 18:14] MED LIST changes: +DORYX MPC120 MG PO; +DOXYCYCLINE 10100 M2 PO
[2020-05-25 18:48] LABS: ABSOLUTE BASOPHILS 0.1 thou/uL (0.0-0.2); ABSOLUTE EOSINOPHILS 0.1 thou/uL (0.0-0.7); ABSOLUTE LYMPHOCYTES 1.7 thou/uL (0.8-5.3); ABSOLUTE MONOCYTES 0.6 thou/uL (0.0-1.2); ABSOLUTE NEUTROPHILS 7.8 thou/uL (1.6-8.1); BASOPHILS 0.6 %; EOSINOPHILS 1.4 %; HEMATOCRIT 34.7 % (37.0-47.0); HEMOGLOBIN 11.2 gm/dL (12.0-15.0); LYMPHOCYTES 16.7 %; MCH 26.5 pg (26.0-34.0); MCHC 32.3 g/dL (28.0-37.0); MCV 82.1 fL (80.0-100.0); MONOCYTES 5.8 %; MPV 7.6 fl. (7.2-11.1); NUCLEATED RBCS 0 /100WBC; PLATELET COUNT* 262 thou/uL (150-400); POLYS 75.5 %; RBC 4.23 mil/uL (4.20-5.00); RDW-CV 15.3 % (10.5-14.5); WBC 10.4 thou/uL (4.0-11.0)
[2020-05-25 18:56] LABS: URINE BLOOD NEGATIVE (Negative); URINE CLARITY CLEAR; URINE COLOR YELLOW; URINE GLUCOSE-RANDOM TRACE (Negative); URINE KETONES NEGATIVE (Negative); URINE LEUKOCYTES-REFLEX NEGATIVE (Negative); URINE NITRITE-REFLEX NEGATIVE (Negative); URINE PROTEIN TRACE (Negative); URINE SPECIFIC GRAVITY >= 1.030 (1.005-1.030); URINE UROBILINOGEN 0.2 E.U./dl (0.2-1.0)
[2020-05-25 18:57] LABS: ICTOTEST (BILI CONFIRMATORY) Negative (Negative); URINE BILIRUBIN 1+ (Negative)
[2020-05-25 19:01] LABS: CALCIUM 8.7 mg/dL (8.5-10.1); POTASSIUM 3.5 mmol/L (3.5-5.1)
[2020-05-25 19:03] LABS: PROTIME 10.7 Seconds (9.20-11.50)
[2020-05-25 19:05] LABS: ALBUMIN 2.9 g/dL (3.4-5.0); TOTAL BILIRUBIN 0.2 mg/dL (<0.1-1.0); TOTAL PROTEIN 6.5 g/dL (6.4-8.2)
[2020-05-25] MEDS ORDERED: IBUPROFEN 800800 M1 PO (20:12)
[2020-05-25] MEDS ORDERED: ZOFRAN ODT4 MG PO (20:13)
[2020-05-25 20:21] VITALS: BP 102/54
== END 2020-05-25 20:21 | disposition home or self-care (01) ==
LOC: M.ERS 18:14
PROVIDERS: Nurse Practitioner Family
DX: N83.202 Unspecified ovarian cyst, left side (principal); R11.2 Nausea with vomiting, unspecified; I10 Essential (primary) hypertension; K21.9 Gastro-esophageal reflux disease without esophagitis; J44.9 Chronic obstructive pulmonary disease, unspecified; G43.909 Migraine, unspecified, not intractable, without status migrainosus; E11.9 Type 2 diabetes mellitus without complications; E66.01 Morbid (severe) obesity due to excess calories; F17.210 Nicotine dependence, cigarettes, uncomplicated; Z88.1 Allergy status to other antibiotic agents; Z79.899 Other long term (current) drug therapy; Z90.49 Acquired absence of other specified parts of digestive tract; Z98.51 Tubal ligation status

== ENCOUNTER 2020-11-01 10:48 | Emergency (ER) | payer OTHER, MEDICAID ==
[~2020-11-01] VITALS: Ht 160 cm; Wt 137.4 kg
[2020-11-01 11:28] LABS: ABSOLUTE EOSINOPHILS 0.2 thou/uL (0.0-0.7); ABSOLUTE LYMPHOCYTES 1.2 thou/uL (0.8-5.3); ABSOLUTE MONOCYTES 0.5 thou/uL (0.0-1.2); ABSOLUTE NEUTROPHILS 6.5 thou/uL (1.6-8.1); BASOPHILS 0.5 %; EOSINOPHILS 1.9 %; HEMATOCRIT 34.5 % (37.0-47.0); HEMOGLOBIN 11.4 gm/dL (12.0-15.0); LYMPHOCYTES 14.3 %; MCH 26.5 pg (26.0-34.0); MCHC 33.1 g/dL (28.0-37.0); MCV 79.9 fL (80.0-100.0); MONOCYTES 5.6 %; MPV 8.1 fl. (7.2-11.1); NUCLEATED RBCS 0 /100WBC; PLATELET COUNT* 280 thou/uL (150-400); POLYS 77.7 %; RBC 4.32 mil/uL (4.20-5.00); RDW-CV 18.4 % (10.5-14.5); WBC 8.4 thou/uL (4.0-11.0)
[2020-11-01 11:39] LABS: CALCIUM 8.7 mg/dL (8.5-10.1); CREATININE 1.1 mg/dL (0.6-1.3); POTASSIUM 3.2 mmol/L (3.5-5.1)
[2020-11-01 11:43] LABS: ALBUMIN 2.6 g/dL (3.4-5.0); TOTAL BILIRUBIN 0.3 mg/dL (<0.1-1.0); TOTAL PROTEIN 7.3 g/dL (6.4-8.2)
[2020-11-01] MEDS ORDERED: BENTYL 10 MG CA10 M1 PO (12:52)
[2020-11-01] MEDS ORDERED: DOXYCYCLINE 10100 M2 PO (12:52)
[2020-11-01 13:19] VITALS: BP 116/72
--- NOTE | 2020-11-01 15:36 | EKG ---
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 : 1980 Requested By: Dean Christopher Order Number: [id number] MD: Mario Daly Measurements Intervals [place] Rate: 70 P: 6 MD: 171 QRS: 23 QRSD: 110 T: 19 QT: 450 QTc: 486 Interpretive Statements Sinus rhythm Consider left atrial enlargement Low voltage, precordial leads Borderline prolonged QT interval Compared to ECG 05/17/2020 00:31:44 No significant changes Electronically Signed On 11-01-2020 15:36:37 CDT by Mario Daly [email or web address] <ELECTRONICALLY SIGNED> By: Mario Daly MD, [facility] 11/01/20 1536 1128 1128 Mario Daly MD, [facility] /EPI
== END 2020-11-01 13:21 | disposition home or self-care (01) ==
LOC: M.ERS 10:48
PROVIDERS: Emergency Medicine Emergency Medical Services
DX: R10.84 Generalized abdominal pain (principal); I10 Essential (primary) hypertension; K21.9 Gastro-esophageal reflux disease without esophagitis; G43.909 Migraine, unspecified, not intractable, without status migrainosus; E11.9 Type 2 diabetes mellitus without complications; J44.9 Chronic obstructive pulmonary disease, unspecified; K58.9 Irritable bowel syndrome, unspecified; E66.01 Morbid (severe) obesity due to excess calories; F17.210 Nicotine dependence, cigarettes, uncomplicated; Z90.49 Acquired absence of other specified parts of digestive tract; Z98.51 Tubal ligation status; Z98.890 Other specified postprocedural states; Z68.43 Body mass index [BMI] 50.0-59.9, adult; Z88.1 Allergy status to other antibiotic agents

== ENCOUNTER 2021-01-04 10:54 | Emergency (ER) | payer OTHER, MEDICAID ==
[~2021-01-04] VITALS: Ht 160 cm; Wt 132.4 kg
[2021-01-04 13:05] VITALS: BP 147/82
== END 2021-01-04 13:07 | disposition home or self-care (01) ==
LOC: M.ERS 10:54
DX: J06.9 Acute upper respiratory infection, unspecified (principal); Z20.822 Contact with and (suspected) exposure to COVID-19; J02.9 Acute pharyngitis, unspecified; I10 Essential (primary) hypertension; K21.9 Gastro-esophageal reflux disease without esophagitis; J44.9 Chronic obstructive pulmonary disease, unspecified; F41.9 Anxiety disorder, unspecified; F32.9 Major depressive disorder, single episode, unspecified; G43.909 Migraine, unspecified, not intractable, without status migrainosus; E11.9 Type 2 diabetes mellitus without complications; E66.01 Morbid (severe) obesity due to excess calories; F17.210 Nicotine dependence, cigarettes, uncomplicated; Z68.43 Body mass index [BMI] 50.0-59.9, adult; Z90.49 Acquired absence of other specified parts of digestive tract; Z98.1 Arthrodesis status; Z98.890 Other specified postprocedural states; Z79.899 Other long term (current) drug therapy; Z88.1 Allergy status to other antibiotic agents

== ENCOUNTER 2021-03-14 00:12 | Emergency (ER) | payer OTHER, MEDICAID ==
[~2021-03-14] VITALS: Ht 160 cm; Wt 128.4 kg
[2021-03-14 01:20] LABS: INFLUENZA A ANTIGEN Negative (Negative); INFLUENZA B ANTIGEN Negative (Negative)
[2021-03-14] MEDS ORDERED: IPRAT-ALBUT 0.5-3 ML INH (02:03)
[2021-03-14] MEDS ORDERED: ZPAK PO (02:03)
[2021-03-14] MEDS ORDERED: NEBULIZER MISCELL (02:03)
[2021-03-14] MEDS ORDERED: PREDNISONE50 MG PO (02:03)
[2021-03-14 02:08] LABS: URINE BILIRUBIN NEGATIVE (Negative); URINE BLOOD NEGATIVE (Negative); URINE CLARITY CLEAR; URINE COLOR YELLOW; URINE GLUCOSE-RANDOM 3+ (Negative); URINE KETONES NEGATIVE (Negative); URINE LEUKOCYTES-REFLEX NEGATIVE (Negative); URINE NITRITE-REFLEX NEGATIVE (Negative); URINE PROTEIN NEGATIVE (Negative); URINE SPECIFIC GRAVITY 1.015 (1.005-1.030); URINE UROBILINOGEN 0.2 E.U./dl (0.2-1.0)
[2021-03-14 02:50] VITALS: BP 122/73
== END 2021-03-14 02:51 | disposition home or self-care (01) ==
LOC: M.ERS 00:12
PROVIDERS: Personal Emergency Response Attendant
DX: U07.1 COVID-19 (principal); J12.82 Pneumonia due to coronavirus disease 2019; J44.1 Chronic obstructive pulmonary disease with (acute) exacerbation; H92.03 Otalgia, bilateral; R35.0 Frequency of micturition; R30.9 Painful micturition, unspecified; I10 Essential (primary) hypertension; J44.9 Chronic obstructive pulmonary disease, unspecified; K21.9 Gastro-esophageal reflux disease without esophagitis; F32.9 Major depressive disorder, single episode, unspecified; G43.909 Migraine, unspecified, not intractable, without status migrainosus; E11.9 Type 2 diabetes mellitus without complications; E66.01 Morbid (severe) obesity due to excess calories; F17.210 Nicotine dependence, cigarettes, uncomplicated; Z90.49 Acquired absence of other specified parts of digestive tract; Z98.890 Other specified postprocedural states; Z98.51 Tubal ligation status; Z68.43 Body mass index [BMI] 50.0-59.9, adult; Z79.899 Other long term (current) drug therapy; Z88.1 Allergy status to other antibiotic agents

== ENCOUNTER 2021-05-04 15:32 | Emergency (ER) | payer OTHER, MEDICAID ==
[~2021-05-04] VITALS: Ht 160 cm; Wt 128.8 kg
[~2021-05-04 15:32] MED LIST changes: +IPRAT-ALBUT 0.5-3 ML INH
[2021-05-04 19:00] VITALS: BP 166/88
--- NOTE | 2021-05-05 11:17 | EKG ---
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: [facility] : 1980 Requested By: Yvonne Byrne Order Number: [id number] MD: Remy Harvey Measurements Intervals [place] Rate: 96 P: 34 [place]: 152 QRS: 11 QRSD: 89 T: 42 QT: 371 QTc: 469 Interpretive Statements Sinus rhythm Low voltage, precordial leads Delayed R wave progression over the anterior precordium Compared to ECG 11/01/2020 11:28:[address]-T abnormalities have diminished Electronically Signed On 05-05-2021 11:17:35 LINUX SERVER ENGINEER by Remy Harvey [email or web address] <ELECTRONICALLY SIGNED> By: Remy Harvey MD, FACC 05/05/21 1117 1544 1544 Remy Harvey MD, FACC /EPI
== END 2021-05-04 19:00 | disposition home or self-care (01) ==
LOC: M.ERS 15:32
DX: R07.89 Other chest pain (principal); Z20.822 Contact with and (suspected) exposure to COVID-19; I10 Essential (primary) hypertension; F17.210 Nicotine dependence, cigarettes, uncomplicated; K21.9 Gastro-esophageal reflux disease without esophagitis; J44.9 Chronic obstructive pulmonary disease, unspecified; F41.9 Anxiety disorder, unspecified; F32.9 Major depressive disorder, single episode, unspecified; G43.909 Migraine, unspecified, not intractable, without status migrainosus; E66.01 Morbid (severe) obesity due to excess calories; Z90.49 Acquired absence of other specified parts of digestive tract; Z98.890 Other specified postprocedural states; Z79.51 Long term (current) use of inhaled steroids; Z79.84 Long term (current) use of oral hypoglycemic drugs; Z79.899 Other long term (current) drug therapy; Z88.1 Allergy status to other antibiotic agents; Z88.8 Allergy status to other drugs, medicaments and biological substances

== ENCOUNTER 2021-05-23 20:13 | Emergency (ER) | payer OTHER, MEDICAID ==
[~2021-05-23] VITALS: Ht 160 cm; Wt 128.8 kg
[2021-05-23] MEDS ORDERED: ZESTRIL40 MG (20:39)
[2021-05-23] MEDS ORDERED: METFORMIN HCL500 M3 (20:40)
[2021-05-23] MEDS ORDERED: TOPROL XL100 MG (20:40)
[2021-05-23] MEDS ORDERED: JARDIANCE25 MG (20:41)
[2021-05-23] MEDS ORDERED: FAMOTIDINE 20 M20 MG (20:41)
[2021-05-23] MEDS ORDERED: HYDROCHLOROTHIA25 M1 (20:42)
[2021-05-23] MEDS ORDERED: MELOXICAM15 MG (20:43)
[2021-05-23] MEDS ORDERED: BUSPIRONE HCL10 MG (20:43)
[2021-05-23] MEDS ORDERED: MINIPRESS2 MG (20:47)
[2021-05-23] MEDS ORDERED: LANTUSSOLASTAR (20:47)
[2021-05-23 22:58] LABS: ABSOLUTE BASOPHILS 0.1 thou/uL (0.0-0.2); ABSOLUTE EOSINOPHILS 0.2 thou/uL (0.0-0.7); ABSOLUTE MONOCYTES 0.6 thou/uL (0.0-1.2); ABSOLUTE NEUTROPHILS 9.6 thou/uL (1.6-8.1); BASOPHILS 0.6 %; EOSINOPHILS 1.6 %; HEMATOCRIT 38.5 % (37.0-47.0); HEMOGLOBIN 12.5 gm/dL (12.0-15.0); LYMPHOCYTES 15.9 %; MCH 25.6 pg (26.0-34.0); MCHC 32.5 g/dL (28.0-37.0); MCV 78.8 fL (80.0-100.0); MONOCYTES 4.9 %; MPV 7.9 fl. (7.2-11.1); NUCLEATED RBCS 0 /100WBC; PLATELET COUNT* 228 thou/uL (150-400); RBC 4.89 mil/uL (4.20-5.00); RDW-CV 17.2 % (10.5-14.5); WBC 12.5 thou/uL (4.0-11.0)
[2021-05-23 23:05] LABS: CALCIUM 8.2 mg/dL (8.5-10.1); CREATININE 0.8 mg/dL (0.6-1.3)
[2021-05-23 23:09] LABS: ALBUMIN 3.1 g/dL (3.4-5.0); TOTAL BILIRUBIN 0.4 mg/dL (<0.1-1.0); TOTAL PROTEIN 6.6 g/dL (6.4-8.2)
[2021-05-23] MEDS ORDERED: MEDI-MECLIZINE25 MG PO (23:42)
[2021-05-23 23:50] VITALS: BP 147/64
--- NOTE | 2021-05-24 13:10 | EKG ---
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 : [id number] Requested By: Domenica Field Order Number: [id number] MD: Misael Chisholm Measurements Intervals [place] Rate: 78 P: 1 LA: 205 QRS: 26 QRSD: 104 T: 40 QT: 437 QTc: 498 Interpretive Statements Sinus rhythm Borderline prolonged [place] interval Low voltage, precordial leads Borderline prolonged QT interval Compared to ECG 05/04/2021 15:44:21 Poor R-wave progression no longer present Electronically Signed On 05-24-2021 13:10:15 BOOKKEEPING TEACHER by Misael Chisholm [email or web address] <ELECTRONICALLY SIGNED> By: Misael Chisholm MD, FACC 05/24/21 1310 18 18 Misael Chisholm MD, [facility] /EPI
== END 2021-05-23 23:51 | disposition home or self-care (01) ==
LOC: M.ERS 20:13
PROVIDERS: Personal Emergency Response Attendant
DX: H81.10 Benign paroxysmal vertigo, unspecified ear (principal); E87.6 Hypokalemia; R07.89 Other chest pain; I10 Essential (primary) hypertension; K21.9 Gastro-esophageal reflux disease without esophagitis; J44.9 Chronic obstructive pulmonary disease, unspecified; F41.9 Anxiety disorder, unspecified; F32.9 Major depressive disorder, single episode, unspecified; G43.909 Migraine, unspecified, not intractable, without status migrainosus; E11.9 Type 2 diabetes mellitus without complications; E66.01 Morbid (severe) obesity due to excess calories; Z68.43 Body mass index [BMI] 50.0-59.9, adult; Z79.899 Other long term (current) drug therapy; Z79.4 Long term (current) use of insulin; Z90.49 Acquired absence of other specified parts of digestive tract; Z98.890 Other specified postprocedural states; Z98.51 Tubal ligation status; Z88.1 Allergy status to other antibiotic agents

== ENCOUNTER 2021-06-23 21:29 | Emergency (ER) | payer OTHER, MEDICAID ==
[~2021-06-23] VITALS: Ht 160 cm; Wt 97.1 kg
[~2021-06-23 21:29] MED LIST changes: +BUSPIRONE HCL10 MG; +FAMOTIDINE 20 M20 MG; +HYDROCHLOROTHIA25 M1; +JARDIANCE25 MG; +LANTUSSOLASTAR; +MEDI-MECLIZINE25 MG PO; +MELOXICAM15 MG; +METFORMIN HCL500 M3; +MINIPRESS2 MG; +TOPROL XL100 MG; +ZESTRIL40 MG
[2021-06-23] MEDS ORDERED: HYDROXYZINE PAM50 MG PO (22:00)
[2021-06-23] MEDS ORDERED: ZPAK PO (22:48)
[2021-06-23] MEDS ORDERED: PREDNISONE50 MG PO (22:48)
[2021-06-23 22:58] VITALS: BP 152/85
[2021-06-23 23:15] LABS: INFLUENZA A ANTIGEN Negative (Negative); INFLUENZA B ANTIGEN Negative (Negative)
== END 2021-06-23 22:58 | disposition home or self-care (01) ==
LOC: M.ERS 21:29
PROVIDERS: Personal Emergency Response Attendant
DX: U07.1 COVID-19 (principal); J12.82 Pneumonia due to coronavirus disease 2019; H66.91 Otitis media, unspecified, right ear; I10 Essential (primary) hypertension; K21.9 Gastro-esophageal reflux disease without esophagitis; J44.9 Chronic obstructive pulmonary disease, unspecified; F41.9 Anxiety disorder, unspecified; F32.9 Major depressive disorder, single episode, unspecified; G43.909 Migraine, unspecified, not intractable, without status migrainosus; E11.9 Type 2 diabetes mellitus without complications; Z79.899 Other long term (current) drug therapy; Z98.51 Tubal ligation status; Z90.49 Acquired absence of other specified parts of digestive tract; Z88.0 Allergy status to penicillin; Z88.1 Allergy status to other antibiotic agents